=== PATIENT | female | born 1950 | race Caucasian/White ===

== ENCOUNTER 2019-04-24 10:40 | Emergency (ER) | payer MEDICARE, OTHER ==
--- NOTE | 2019-04-24 11:20 | ER Document Report ---
ED Medical Screen (RME) - General Chief Complaint: Leg Pain Stated Complaint: LEG PAIN Time Seen by Provider: 04/24/19 11:12 Primary Care Provider: NILES ROBERTO MD [Primary Care Provider] - Follow up as needed Notes: Patient is a 69-year-old female with a history of hypertension, high cholesterol, hypothyroidism who presents to the emergency department with a chief complaint of right leg pain and numbness. Patient states this is been present for about 1 week. Patient was seen at the urgent care on Wednesday and was prescribed steroids and Robaxin. Patient states she feels like the Robaxin is helping with her discomfort. Patient reports that the pain initially started in the right upper buttocks and radiates down to the back of her leg behind the knee. Patient states the pain feels like a muscle spasm. Patient states initially she thought she pulled a muscle in her right buttocks. Patient denies injury or fall. Patient states she has developed numbness to the back of her thigh on the right side since Wednesday. Patient denies loss of bowel or bladder. Patient denies back pain. Patient states that sitting down makes the pain worse but when she gets up and moves around the seems to help relieve the pain. TRAVEL OUTSIDE OF THE [place] IN LAST 30 DAYS: No - Related Data Allergies/Adverse Reactions: No Known Allergies Allergy (Verified 04/24/19 10:40) Past Medical History - Social History Frequency of alcohol use: None Drug Abuse: None Physical Exam - Vital signs Vitals: Temp Pulse Resp BP Pulse Ox 97.6 F 83 18 130/96 H 95 04/24/19 10:54 04/24/19 10:54 04/24/19 10:54 04/24/19 10:54 04/24/19 10:54 - Respiratory Respiratory status: No respiratory distress Chest status: Nontender Breath sounds: Normal Chest palpation: Normal - Cardiovascular Rhythm: Regular Course - Re-evaluation Re-evalutation: 04/24/19 11:20 I have greeted and performed a rapid initial assessment of this patient. A comprehensive ED assessment and evaluation of the patient, analysis of test results and completion of the medical decision making process will be conducted by additional ED providers. - Vital Signs Vital signs: Temp Pulse Resp BP Pulse Ox 97.6 F 83 18 130/96 H 95 04/24/19 10:54 04/24/19 10:54 04/24/19 10:54 04/24/19 10:54 04/24/19 10:54 Doctor's Discharge - Discharge Referrals: NILES ROBERTO MD [Primary Care Provider] - Follow up as needed
[2019-04-24] MEDS ORDERED: HYDROCODONE/ACETAMINOPHEN 5-325 MG (6 TAB/ER DISP) PO PRN (13:31)
--- NOTE | 2019-04-24 13:38 | ER Document Report ---
ED General - General Chief Complaint: Leg Pain Stated Complaint: LEG PAIN Time Seen by Provider: 04/24/19 11:12 Primary Care Provider: NILES ROBERTO MD [COMMUNITY BASED STAFF] - Follow up as needed TRAVEL OUTSIDE OF THE [place] IN LAST 30 DAYS: No - HPI Notes: Patient is a 69-year-old female presents emergency department for evaluation of pain down the back of her right leg as well as numbness. She states over the last few weeks she has had some back pain particularly on the right side. She states the pain is increased significantly in the right buttock area and down to the right knee. She states she also has some pain and numbness on the lateral aspect of the right ankle. She denies any bowel or bladder incontinence, no saddle anesthesia, no focal weakness. She states she does have some pain, and some difficulty walking as she has to concentrate in regards to placing her heel down. She states her heel feels huge. She denies any coolness to the extremity. She has had no instrumentation or surgical interventions on her lumbar spine at any time. No fevers or chills. No nausea or vomiting. She denies any chest pain or difficulty breathing. She actually was seen at an urgent care for symptoms including pain without numbness the other day. She was given oral steroids, Flexeril. She has not yet started the Medrol Dosepak that she was prescribed. She went back there today because of the numbness, was told that she could be having a stroke, so she is in here to the emergency department for further evaluation. - Related Data Allergies/Adverse Reactions: No Known Allergies Allergy (Verified 04/24/19 10:40) Past Medical History - General Information source: Patient - Social History Smoking Status: Never Smoker Frequency of alcohol use: None Drug Abuse: None Family History: Reviewed & Not Pertinent Patient has suicidal ideation: No Patient has homicidal ideation: No - Past Medical History Cardiac Medical History: Reports: Hx Hypercholesterolemia, Hx Hypertension Endocrine Medical History: Reports: Hx Hypothyroidism Past Surgical History: Reports: Hx Breast Surgery - lumpectomy, Hx Hysterectomy, Hx Orthopedic Surgery - R knee, Hx Tubal Ligation Review of Systems - Review of Systems Constitutional: No symptoms reported EENT: No symptoms reported Cardiovascular: No symptoms reported Respiratory: No symptoms reported Gastrointestinal: No symptoms reported Female Genitourinary: No symptoms reported Musculoskeletal: See HPI Hematologic/Lymphatic: No symptoms reported Physical Exam - Vital signs Vitals: Temp Pulse Resp BP Pulse Ox 97.6 F 83 18 130/96 H 95 04/24/19 10:54 04/24/19 10:54 04/24/19 10:54 04/24/19 10:54 04/24/19 10:54 - Notes Notes: Vital signs reviewed, please refer to chart. Head is normocephalic, atraumatic. Pupils equal round, reactive to light. Neck is supple without meningismus. Heart is regular rate and rhythm. Lungs are clear to auscultation bilaterally. Abdomen is soft, nontender, normoactive bowel sounds throughout. Extremities without cyanosis, clubbing. Posterior calves are nontender. Peripheral pulses are equal. Skin is warm and dry. Examination of the spine is no midline tenderness or step-off, no paraspinal musculature tenderness is appreciated. She does have tenderness to palpation over the right piriformis and a positive straight leg raise on the right. Patellar and Achilles reflexes are +2 and +1 respectively bilaterally. Sensation is diminished to light touch in the posterior aspect of the thigh. Dorsalis pedis pulse is 2+. Patient is awake, alert, oriented x3. Cranial nerves II - XII are grossly intact without focal neurological deficits. Strength is plus 5 out of 5 bilateral upper and lower extremities. Sensation is intact. Reflexes symmetrical. Intact [id number], rapid alternating movements, [id number]. Course - Re-evaluation Re-evalutation: 04/24/19 13:35 Patient presents emergency department for evaluation. They were sent over from the urgent care for concerns of a more significant etiology of her numbness. Patient's daughter actually came out of the room, telling staff that she was told by urgent care that her mother may be having a heart attack. Because of this EKG was ordered. Again the patient had absolutely no chest pain, no difficulty breathing, no dizziness, no near syncope. To me this still seems very consistent with sciatica. She is not exhibiting any significant red flag symptoms. She is not weak. She has no bowel or bladder incontinence. She has not even started the oral steroid beyond the first dose that she got on Wednesday. I will consider her with a small amount of pain medication. She does plan on evacuating, is concerned about being in the car for several hours. She is given some Mallory to go from here. Otherwise she is to start the steroid as well as the Flexeril. She is to follow-up with primary care next week. Suggest follow-up and consider starting physical therapy for further treatment. She is to return to the ED with worsening or new concerning symptoms of any sort. 04/24/19 17:28 - Vital Signs Vital signs: Temp Pulse Resp BP Pulse Ox 97.6 F 78 15 139/87 H 93 04/24/19 14:00 04/24/19 14:00 04/24/19 14:00 04/24/19 14:00 04/24/19 14:00 - EKG Interpretation by Me Additional EKG results interpreted by me: 04/24/19 17:28 Sinus mechanism with a rate of 81 bpm. Normal axis and intervals. Nonspecific ST changes, but no acute changes concerning for ischemia or infarction. No old studies available for comparison. Discharge - Discharge Clinical Impression: Sciatica Qualifiers: Laterality: right Qualified Code(s): M54.31 - Sciatica, right side Condition: Stable Disposition: HOME, SELF-CARE Instructions: Sciatica ([facility]) Additional Instructions: Take pain medication as needed for severe pain. Watch for drowsiness and constipation with this. Start the steroid as previously directed. You can take 5 to 10 mg of the cyclobenzaprine as needed for muscle tension. Follow-up with primary care. He should discuss the potential for starting physical therapy. If you develop bowel or bladder incontinence, or any other new or concerning symptoms, return immediately to the emergency department for reevaluation. Referrals: NILES ROBERTO MD [COMMUNITY BASED STAFF] - Follow up as needed
[2019-04-24 14:04] VITALS: BP 139/87
--- NOTE | 2019-04-25 23:17 | EKG REPORT ---
SEVERITY:- BORDERLINE ECG - SINUS RHYTHM PROBABLE LEFT ATRIAL ABNORMALITY BORDERLINE T WAVE ABNORMALITIES : Confirmed by: Glendy Sifuentes 25-Apr-2019 23:16:49
== END 2019-04-24 14:04 | disposition home or self-care (01) ==
LOC: ER 10:40
DX: M54.31 Sciatica, right side (principal); M79.604 Pain in right leg; M54.9 Dorsalgia, unspecified; I10 Essential (primary) hypertension
CPT/HCPCS: 93005; 99283; 93010; A9270

== ENCOUNTER → 2020-04-12 | Outpatient (CLI) | payer MEDICARE, OTHER ==
[2020-04-12 12:54] LABS: ALBUMIN 4.1 g/dL (3.5-5.0); ALKALINE PHOSPHATASE 87 U/L (38-126); ANION GAP 11 (5-19); ASPARTATE AMINO TRANSFERASE 26 U/L (14-36); BILIRUBIN,TOTAL 0.7 mg/dL (0.2-1.3); BLOOD UREA NITROGEN 18 mg/dL (7-20); CALCIUM 9.6 mg/dL (8.4-10.2); CARBON DIOXIDE 27 mmol/L (22-30); CHLORIDE 104 mmol/L (98-107); CHOLESTEROL 176.67 mg/dL (0-200); GLUCOSE 90 mg/dL (75-110); POTASSIUM 4.7 mmol/L (3.6-5.0); TOTAL PROTEIN 7.2 g/dL (6.3-8.2); TRIGLYCERIDES 129 mg/dL (<150)
[2020-04-12 13:05] LABS: DIRECT LDL 97 mg/dL (<100)
== END ==
LOC: OD 10:55
PROVIDERS: ATTEND Physician Assistant
DX: E78.00 Pure hypercholesterolemia, unspecified (principal); I10 Essential (primary) hypertension; R00.2 Palpitations; E03.9 Hypothyroidism, unspecified; Z79.899 Other long term (current) drug therapy
CPT/HCPCS: 36415; 80048; 80061; 80076; 84443